=== PATIENT | female | born 1995 | race Two or more races ===

== ENCOUNTER 2016-08-26 17:37 | Emergency (ER) | payer OTHER ==
[~2016-08-26] VITALS: Ht 149.9 cm; Wt 63.5 kg
[~2016-08-26 17:37] MED LIST: CEPHALEXIN500 MG ORAL; CYCLOBENZAPRINE10 MG ORAL; IBUPROFEN600 MG ORAL; NKM; NORCO 5-325 TA1 EACH ORAL; OMEPRAZOLE40 M1 ORAL; PEPCID40 MG PO; RANITIDINE HCL150 MG ORAL; ZOFRAN ODT4 MG ORAL; ZOFRAN ODT8 MG ORAL; bcp
[2016-08-26 18:41] LABS: APPEARANCE,URINE CLEAR; KETONES,URINE NEGATIVE (NEGATIVE); LEUKOCYTE ESTERASE ,URINE 1+ (NEGATIVE); NITRITE,URINE NEGATIVE (NEGATIVE); PH,URINE 6.5 (4.5-8.0); PROTEIN,URINE NEGATIVE (NEGATIVE); UROBILINOGEN,URINE NORMAL MG/DL (0.0-1.0)
[2016-08-26 19:12] LABS: BACTERIA,URINE FEW /HPF; SQUAMOUS EPITHELIAL CELL,UR FEW /LPF (NONE/OCC); WBC,URINE 0-2 /HPF (0 - 2)
--- NOTE | 2016-08-26 21:48 | Emergency Room Report ---
History of Present Illness General Chief Complaint: Complications Source: Patient Present Illness HPI 21-year-old female presents to emergency Department complaining of midline lower abdominal discomfort rated as 5/10 in severity described as fullness/ loading/stretched out sensation x1 day. Patient states onset was immediately after having to hold her full bladder x20 minutes. Patient reports frequency and mild dysuria. Patient denies abdominal tenderness patient states her lower abdomen feels "sore". Patient denies hematuria and denies vaginal bleeding or vaginal discharge. Patient is and states she is approximately 5 weeks . Patient states her ultrasound is scheduled for next month. Patient denies nausea, vomiting fevers or chills. Patient denies constipation or diarrhea. 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 Denies CP, Palpitations, LOC, AMS, dizziness, Changes in Vision, Sensation, paresthesias, or a sudden severe headache. Allergies: Coded Allergies: PENICILLINS (Verified Allergy, Mild, rash, 12/25/12) Patient History Past Medical History: see triage record Past Surgical History: none Pertinent Family History: none Last Menstrual Period: 07/26/16 Now: Yes - possibly 5 weeks, not positive on date of LMP : 2 Para: 1 Immunizations: UTD Reviewed Nursing Documentation: PMH: Agreed, PSxH: Agreed Nursing Documentation-PMH Past Medical History: No Stated History Hx Cardiac Problems: No Hx Cancer: No Hx Gastrointestinal Problems: Yes - GALLSTONES ONE YEAR Hx Neurological Problems: No Review of Systems All Other Systems: negative except mentioned in HPI Physical Exam Vital Signs Date Time Temp Pulse Resp B/P Pulse Ox O2 Delivery O2 Flow Rate FiO2 08/26/16 17:50 98.6 84 16 99/64 99 Room Air Sp02 EP Interpretation: reviewed, normal General Appearance: no apparent distress, alert, GCS 15, non-toxic Head: normocephalic, atraumatic Eyes: bilateral eye PERRL, bilateral eye normal inspection ENT: hearing grossly normal, normal pharynx, no angioedema, normal voice Neck: full range of motion, supple/symm/no masses Respiratory: chest non-tender, lungs clear, normal breath sounds, speaking full sentences Cardiovascular #1: regular rate, rhythm, no edema Gastrointestinal: normal bowel sounds, non tender, soft, no guarding, no rebound, other - Negative [place] signs, Negative MacBurney's sign, Negative Rosvigns Sign, Negative Psoas, No Peritoneal signs. Rectal: deferred Genitourinary: normal inspection, no CVA tenderness, adnexa normal, cervix normal, ext genitalia/vag normal, os closed Musculoskeletal: back normal, gait/station normal, normal range of motion, non- tender, no calf tenderness Neurologic: alert, oriented x3, responsive, motor strength/tone normal, sensory intact, speech normal Psychiatric: judgement/insight normal, memory normal, mood/affect normal, no suicidal/homicidal ideation Reflexes: 4+ bicep (R), 4+ bicep (L), 4+ tricep (R), 4+ tricep (L), 4+ knee (R) , 4+ knee (L) Skin: normal color, no rash, warm/dry, well hydrated Lymphatic: no adenopathy Medical Decision Making PA Attestation Dr. Hassan is my supervising Physician whom patient management has been discussed with. Diagnostic Impression: Primary Impression: Ovarian cyst during in first trimester Additional Impression: Dysuria in in first trimester ER Course 21-year-old female presents to emergency Department complaining of midline lower abdominal discomfort rated as 5/10 in severity described as fullness/ loading/stretched out sensation x1 day. Patient states onset was immediately after having to hold her full bladder x20 minutes. Patient reports frequency and mild dysuria. Patient denies abdominal tenderness patient states her lower abdomen feels "sore". Patient denies hematuria and denies vaginal bleeding or vaginal discharge. Patient is and states she is approximately 5 weeks . Patient states her ultrasound is scheduled for next month.. Ddx considered but are not limited to: muscle strain, ectopic , Spontaneous ,threatened , UTI, cystitis Vital signs: are WNL, pt. is afebrile Pelvic Exam: no evidence of blood in the vaginal vault, os is closed, no CMT. no adnexal TTP. H&PE are most consistent with: acute cystitis/ possible UTI during , will r/o ectopic. ORDERS: -Urine hcg- Positive -UA: moderate RBC's , no WBC, no leukocytes, few bacteria, few squamous cells. -serum Hcg Quant: 48,347 -Pelvic US complete- normal intrauterine estimated at 6weeks and 4days gestation.with bilateral corpus luteum cysts. per preliminary radiology report by Dr. Almazan. ED INTERVENTIONS: -200mg Pyridium PO . DISCHARGE: At this time pt. is stable for d/c to home. Will provide printed patient care instructions, and any necessary prescriptions. Care plan and follow up instructions have been discussed with the patient prior to discharge. Labs Test 08/26/16 17:55 08/26/16 19:44 Urine Color Yellow Urine Appearance Clear Urine pH 6.5 (4.5-8.0) Urine Specific Mark 1.010 (1.005-1.035) Urine Protein Negative (NEGATIVE) Urine Glucose (UA) Negative (NEGATIVE) Urine Ketones Negative (NEGATIVE) Urine Occult Blood 1+ (NEGATIVE) Urine Nitrite Negative (NEGATIVE) Urine Bilirubin Negative (NEGATIVE) Urine Urobilinogen Normal MG/DL (0.0-1.0) Urine Leukocyte Esterase 1+ (NEGATIVE) Urine RBC 2-4 /HPF (0 - 2) Urine WBC 0-2 /HPF (0 - 2) Urine Squamous Epithelial Cells Few /LPF (NONE/OCC) Urine Bacteria Few /HPF (NONE) Urine HCG, Qualitative Positive Human Chorionic Gonadotropin, Quant 23908 mIU/mL Last Vital Signs Date Time Temp Pulse Resp B/P Pulse Ox O2 Delivery O2 Flow Rate FiO2 08/26/16 17:50 98.6 84 16 99/64 99 Room Air Disposition: HOME, SELF-CARE Condition: Stable Referrals: [facility],REFERRIN (PCP) Patient Instructions: Dysuria, Ovarian Cyst, [id number] Additional Instructions: Take medications as directed. Follow up with OBGYN in 3 days Return sooner to ED if new symptoms occur, or current symptoms become worse. Pyridium will cause your urine to change color (Red/Chugach), this is a normal side effect of the medication. - Please note that this Emergency Department Report was dictated using [employer]mold filler plastic dolls technology software, occasionally this can lead to erroneous entry secondary to interpretation by the dictation equipment. Nati Garcia Aug 26, 2016 21:48
[2016-08-26] MEDS ORDERED: PHENAZOPYRIDIN100 MG ORAL (22:27)
[2016-08-26] MEDS ORDERED: TYLENOL EXTRA500 MG ORAL (22:27)
[2016-08-26] MEDS ORDERED: Phenazopyridine 200mg tab ORAL ONE (22:30)
[2016-08-26 22:44] VITALS: BP 122/90
--- NOTE | 2016-08-27 11:15 | Diagnostic Imaging Report ---
Indication: PAIN, positive test Technique: Transabdominal and transvaginal images Comparison: 01/23/2013 Findings: Uterus measures 8.9 cm length by 5 cm AP. Within the endometrium, there is a gestational sac. Contains a pole with a crown-rump length of 7 mm, corresponding to estimated gestational age of 6 weeks 4 days. This also demonstrates a yolk sac with positive heart activity, with a heart rate of 144 beats per minute. No subchorionic hemorrhage demonstrated. Myometrium is diffusely heterogeneous. Nabothian cysts are seen in the cervix. The endometrium is questionably bicornuate. The right ovary measures 3.3 cm in length. It demonstrates a 2.1 cm corpus luteum. The left ovary measures 3.1 cm in length, demonstrates a 2.1 cm corpus luteum. Impression: 6 week 4 day single intrauterine . No unusual features Suspect fibroid uterus Possible bicornuate uterus Cervical nabothian cysts incidentally noted This agrees with the preliminary interpretation provided overnight by Dr. Almazan
== END 2016-08-26 22:47 | disposition home or self-care (01) ==
LOC: EMR 19:58
DX: O34.81 Maternal care for other abnormalities of pelvic organs, first trimester (principal); Z3A.01 Less than 8 weeks gestation of pregnancy; R30.0 Dysuria; Z88.0 Allergy status to penicillin
CPT/HCPCS: 36415; 76801; 76830; 81003; 81025; 84702; 99284

== ENCOUNTER 2018-11-30 23:20 | Emergency (ER) | payer OTHER ==
[~2018-11-30] VITALS: Ht 162.6 cm; Wt 68.0 kg
[~2018-11-30 23:20] MED LIST changes: +PHENAZOPYRIDIN100 MG ORAL; +TYLENOL EXTRA500 MG ORAL
[2018-11-30 23:23] VITALS: BP 125/86
--- NOTE | 2018-11-30 23:23 | NUR ---
ED Nurse Note: Pt arrived ambulatory into ED for abcess located on left side of perineal area. Pt states abcess began 2 months ago but has progressively gotten worst. Pain occurs during ADL's and during exertion.
[2018-11-30] MEDS ORDERED: NKM (23:25)
--- NOTE | 2018-11-30 23:41 | Emergency Room Report ---
History of Present Illness General Chief Complaint: Skin Rash/Abscess Source: Patient Present Illness HPI Patient sense with complaints of a small visible bump left vaginal area Patient has noticed over the past 2 months however reports over the past week has been more irritated Denies any discharge Denies any fevers or chills Denies any abdominal pain Pain is worse with walking and touching the area Allergies: Coded Allergies: PENICILLINS (Verified Allergy, Mild, rash, 12/25/12) Patient History Past Medical History: see triage record Pertinent Family History: none Last Menstrual Period: implant on 2017 Now: No : 2 Para: 2 Reviewed Nursing Documentation: PMH: Agreed; PSxH: Agreed Nursing Documentation-PMH Past Medical History: No History, Except For Hx Cardiac Problems: No Hx Cancer: No Hx Gastrointestinal Problems: Yes - GALLSTONES ONE YEAR Hx Neurological Problems: No Review of Systems All Other Systems: negative except mentioned in HPI Physical Exam Vital Signs Date Time Temp Pulse Resp B/P (MAP) Pulse Ox O2 Delivery O2 Flow Rate FiO2 11/30/18 23:22 99.5 90 18 125/86 (99) 100 Room Air Sp02 EP Interpretation: reviewed, normal General Appearance: well appearing, no apparent distress Head: normocephalic, atraumatic Eyes: bilateral eye PERRL, bilateral eye EOMI ENT: hearing grossly normal, normal pharynx Neck: supple Respiratory: lungs clear Gastrointestinal: soft Genitourinary: other - Small raised appearance left lobe or a major area, consistent with likely folliculitis, early Bartholin's cyst cannot be ruled out Musculoskeletal: normal inspection Neurologic: alert, oriented x3 Skin: no rash, warm/dry Lymphatic: no adenopathy Medical Decision Making Diagnostic Impression: Primary Impression: Folliculitis Additional Impression: Bartholin cyst ER Course Multiple differentials and consideration including but not limited to folliculitis, ingrown hair, Bartholin cyst, the area in question appears to be more external, making the consideration for Bartholin cyst bit less likely Patient is placed on antibiotics warm soaking at this time incision is not appropriate and patient was deferred to gynecology follow-up for further care as needed Last Vital Signs Date Time Temp Pulse Resp B/P (MAP) Pulse Ox O2 Delivery O2 Flow Rate FiO2 11/30/18 23:22 99.5 90 18 125/86 (99) 100 Room Air Status: unchanged Disposition: HOME, SELF-CARE Condition: Stable Additional Instructions: Patient is provided with the discharge instructions notified to follow up with primary doctor in the next 2-3 days otherwise return to the er with any worsening symptoms. Please note that this report is being documented using [employer] technology. This can lead to erroneous entry secondary to incorrect interpretation by the dictating instrument. Edouard Hassan DO November 30, 2018 23:41
[2018-11-30] MEDS ORDERED: BACTRIM DS TAB1 EAC1 ORAL (23:43)
[2018-11-30] MEDS ORDERED: IBUPROFEN600 MG ORAL (23:43)
--- NOTE | 2018-11-30 23:45 | NUR ---
ED Nurse Note: Pt cleared by . Pt A/Ox4, showing no signs of acute distress. VSS. Discharge paperwork provided. Pt verbalized understanding of all instructions. All belongings taken with pt. ID band removed. Pt ambulated out of ED with steady gait and accompanied by family member.
[2018-11-30 23:46] VITALS: BP 130/66
== END 2018-11-30 23:45 | disposition home or self-care (01) ==
LOC: EMR 23:34
DX: L73.9 Follicular disorder, unspecified (principal); N75.0 Cyst of Bartholin's gland; Z88.0 Allergy status to penicillin
CPT/HCPCS: 99282

== ENCOUNTER 2018-12-11 21:49 | Emergency (ER) | payer OTHER ==
[~2018-12-11] VITALS: Ht 149.9 cm; Wt 71.2 kg
[~2018-12-11 21:49] MED LIST changes: +BACTRIM DS TAB1 EAC1 ORAL
[2018-12-11] MEDS ORDERED: BACITRACIN15 GM TOPIC (23:07)
[2018-12-11 23:15] VITALS: BP 107/66
[2018-12-11 23:25] VITALS: BP 111/72
--- NOTE | 2018-12-12 05:59 | Emergency Room Report ---
History of Present Illness General Chief Complaint: Female Urogenital Problems Source: Patient Present Illness HPI 23-year-old female presents ED for evaluation. Patient complaining of an painful bump on her vagina. States she was seen here on 11/30 for the same thing. Was prescribed antibiotics. States that it improved overall but she still having some irritation. It is burning, 3 out of 10, nonradiating. Denies any bleeding or discharge. Denies any fevers or chills. No other aggravating relieving factors. Denies any other associated symptoms Allergies: Coded Allergies: PENICILLINS (Verified Allergy, Mild, rash, 12/25/12) Patient History Past Medical History: none Past Surgical History: none Pertinent Family History: none Social History: Denies: smoking, alcohol use, drug use Last Menstrual Period: Inplant control Now: No Immunizations: UTD Reviewed Nursing Documentation: PMH: Agreed; PSxH: Agreed Nursing Documentation-PMH Hx Cardiac Problems: No Hx Cancer: No Hx Gastrointestinal Problems: Yes - GALLSTONES ONE YEAR Hx Neurological Problems: No Review of Systems All Other Systems: negative except mentioned in HPI Physical Exam Vital Signs Date Time Temp Pulse Resp B/P (MAP) Pulse Ox O2 Delivery O2 Flow Rate FiO2 12/11/18 22:02 99.0 80 18 111/72 (85) 98 Room Air Sp02 EP Interpretation: reviewed, normal General Appearance: no apparent distress, alert, GCS 15, non-toxic Head: normocephalic Eyes: bilateral eye normal inspection, bilateral eye PERRL ENT: normal ENT inspection Neck: normal inspection Respiratory: normal inspection Cardiovascular #1: normal inspection Gastrointestinal: normal inspection Rectal: deferred Genitourinary: no CVA tenderness, other - program attendant present - healing folliculitis outer labia on right Musculoskeletal: normal inspection Neurologic: alert, oriented x3, responsive, motor strength/tone normal, sensory intact, speech normal Psychiatric: normal inspection Skin: normal inspection Lymphatic: normal inspection Medical Decision Making Diagnostic Impression: Primary Impression: Folliculitis ER Course Hospital Course 23-year-old F presents to ED for wound check. given abx for infection on vagina Clinical course Patient placed on stretcher. Prone present. On exam there is a healing folliculitis on the outer labia on the right. No induration. No fluctuance or discharge. Discussed findings with patient. Does not appear actively infected. I see no reason to continue antibiotics. Patient does describe some irritation with clothing. Recommended padding and bacitracin. Safe for discharge for close outpatient follow-up. Will provide referrals Diagnosis - follicultiis Stable and discharged to home. Followup with PMD. Return to ED if things recur or worsen Last Vital Signs Date Time Temp Pulse Resp B/P (MAP) Pulse Ox O2 Delivery O2 Flow Rate FiO2 12/11/18 23:25 99.0 18 111/72 98 Room Air 12/11/18 23:15 76 Status: improved Disposition: HOME, SELF-CARE Condition: Stable Scripts Bacitracin (Bacitracin) 28.4 Gm Oint...g. 1 APPLIC TOPIC THREE TIMES A DAY, #28.4 GM Prov: Reed Barragan MD 12/11/18 Referrals: [facility] Patient Instructions: Folliculitis Reed Barragan MD Dec 12, 2018 05:59
== END 2018-12-11 23:25 | disposition home or self-care (01) ==
LOC: EMR 22:31
DX: L73.9 Follicular disorder, unspecified (principal); Z88.0 Allergy status to penicillin
CPT/HCPCS: 99282

== ENCOUNTER 2019-01-03 11:19 | Emergency (ER) | payer OTHER ==
[~2019-01-03] VITALS: Ht 149.9 cm; Wt 70.8 kg
[~2019-01-03 11:19] MED LIST changes: +BACITRACIN15 GM TOPIC
[2019-01-03 11:36] VITALS: BP 124/80
--- NOTE | 2019-01-03 11:37 | NUR ---
ED Nurse Note: pt walked in to ED due to generalized body pain. started on both knee and now all over the body. no fever or chills reported. no recent injury. AAO x4. ambulatory with steady gait. respiraions even and non-labored noted. will wait for the further order.
[2019-01-03 12:13] LABS: APPEARANCE,URINE CLEAR; BILIRUBIN, URINE NEGATIVE (NEGATIVE); COLOR,URINE PALE YELLOW; GLUCOSE, URINE (UA) NEGATIVE (NEGATIVE); KETONES,URINE NEGATIVE (NEGATIVE); LEUKOCYTE ESTERASE ,URINE 3+ (NEGATIVE); NITRITE,URINE NEGATIVE (NEGATIVE); PH,URINE 7 (4.5-8.0); PROTEIN,URINE 1+ (NEGATIVE); UROBILINOGEN,URINE NORMAL MG/DL (0.0-1.0)
[2019-01-03 12:14] LABS: BASOPHILS % (AUTO) 1.2 % (0.0-2.0); EOSINOPHILS % (AUTO) 1.5 % (0.0-3.0); HEMATOCRIT 40.8 % (37.0-47.0); HEMOGLOBIN 13.9 G/DL (12.0-16.0); LYMPHOCYTES % (AUTO) 27.4 % (20.0-45.0); MEAN CORPUSCULAR VOLUME 87 FL (80-99); MONOCYTES % (AUTO) 7.1 % (1.0-10.0); NEUTROPHILS % (AUTO) 62.9 % (45.0-75.0); PLATELET COUNT 317 K/UL (150-450); RED BLOOD COUNT 4.68 M/UL (4.20-5.40); RED CELL DISTRIBUTION WIDTH 11.7 % (11.6-14.8); WHITE BLOOD COUNT 7.7 K/UL (4.8-10.8)
--- NOTE | 2019-01-03 12:16 | Emergency Room Report ---
History of Present Illness General Chief Complaint: Pain Source: Patient Present Illness HPI Patient presents with complaints of body aches reports that several days ago started out with some leg cramping She had taken some Advil which improved the discomfort Throughout the day yesterday and today she felt increased body aches including the upper extremities and upper chest area she has been having mild headaches over the past few days as well Denies any neck pain or photophobia denies any vomiting or diarrhea Denies any fevers Denies any fall or trauma denies any other recent activities Allergies: Coded Allergies: PENICILLINS (Verified Allergy, Mild, rash, 01/03/19) Patient History Past Medical History: see triage record Pertinent Family History: none Last Menstrual Period: 2018 Now: No : 2 Para: 2 Reviewed Nursing Documentation: PMH: Agreed; PSxH: Agreed Nursing Documentation-PMH Past Medical History: No History, Except For Hx Cardiac Problems: No Hx Cancer: No Hx Gastrointestinal Problems: Yes - GALLSTONES ONE YEAR Hx Neurological Problems: No Review of Systems All Other Systems: negative except mentioned in HPI Physical Exam Vital Signs Date Time Temp Pulse Resp B/P (MAP) Pulse Ox O2 Delivery O2 Flow Rate FiO2 01/03/19 11:23 98.4 108 18 124/80 (95) 97 Room Air Sp02 EP Interpretation: reviewed, normal General Appearance: well appearing, no apparent distress Head: normocephalic, atraumatic Eyes: bilateral eye PERRL, bilateral eye EOMI ENT: hearing grossly normal, normal pharynx, TMs + canals normal, uvula midline Neck: full range of motion, supple, no meningismus, no bony tend Respiratory: lungs clear, normal breath sounds, no rhonchi, no respiratory distress, no retraction, no accessory muscle use Cardiovascular #1: normal peripheral pulses, regular rate, rhythm, no edema, no gallop, no JVD, no murmur Gastrointestinal: normal bowel sounds, non tender, soft, no mass, no organomegaly, non-distended, no guarding, no hernia, no pulsatile mass, no rebound Genitourinary: no CVA tenderness Musculoskeletal: normal inspection Neurologic: oriented x3, responsive, drier unloader III-XII nml as tested, motor strength/ tone normal, sensory intact Psychiatric: mood/affect normal Lymphatic: normal inspection, no adenopathy Medical Decision Making Diagnostic Impression: Primary Impression: UTI (urinary tract infection) Additional Impressions: Myalgia Dehydration ER Course Given the patient's history and presentation multiple differentials and consideration Including but not limited to flulike symptoms, rhabdomyolysis, other electro light pathology Patient's blood work is at baseline levels however a urine sample does show questionable UTI patient remains hemodynamically stable And will have initial conservative outpatient trial Labs Test 01/03/19 12:03 White Blood Count 7.7 K/UL (4.8-10.8) Red Blood Count 4.68 M/UL (4.20-5.40) Hemoglobin 13.9 G/DL (12.0-16.0) Hematocrit 40.8 % (37.0-47.0) Mean Corpuscular Volume 87 FL (80-99) Mean Corpuscular Hemoglobin 29.7 PG (27.0-31.0) Mean Corpuscular Hemoglobin Concent 34.0 G/DL (32.0-36.0) Red Cell Distribution Width 11.7 % (11.6-14.8) Platelet Count 317 K/UL (150-450) Mean Platelet Volume 8.4 FL (6.5-10.1) Neutrophils (%) (Auto) 62.9 % (45.0-75.0) Lymphocytes (%) (Auto) 27.4 % (20.0-45.0) Monocytes (%) (Auto) 7.1 % (1.0-10.0) Eosinophils (%) (Auto) 1.5 % (0.0-3.0) Basophils (%) (Auto) 1.2 % (0.0-2.0) Urine Color Pale yellow Urine Appearance Clear Urine pH 7 (4.5-8.0) Urine Specific [place] 1.010 (1.005-1.035) Urine Protein 1+ (NEGATIVE) Urine Glucose (UA) Negative (NEGATIVE) Urine Ketones Negative (NEGATIVE) Urine Blood 2+ (NEGATIVE) Urine Nitrite Negative (NEGATIVE) Urine Bilirubin Negative (NEGATIVE) Urine Urobilinogen Normal MG/DL (0.0-1.0) Urine Leukocyte Esterase 3+ (NEGATIVE) Urine RBC 2-4 /HPF (0 - 2) Urine WBC 5-10 /HPF (0 - 2) Urine Squamous Epithelial Cells Moderate /LPF (NONE/OCC) Urine Bacteria Few /HPF (NONE) Urine HCG, Qualitative Negative (NEGATIVE) Sodium Level 141 MMOL/L (136-145) Potassium Level 3.9 MMOL/L (3.5-5.1) Chloride Level 104 MMOL/L (98-107) Carbon Dioxide Level 27 MMOL/L (21-32) Anion Gap 10 mmol/L (5-15) Blood Urea Nitrogen 6 mg/dL (7-18) Creatinine 0.6 MG/DL (0.55-1.30) Estimat Glomerular Filtration Rate > 60 mL/min (>60) Glucose Level 127 MG/DL (74-106) Calcium Level 9.0 MG/DL (8.5-10.1) Total Bilirubin 0.3 MG/DL (0.2-1.0) Aspartate Amino Transf (AST/SGOT) 26 U/L (15-37) Alanine Aminotransferase (ALT/SGPT) 45 U/L (12-78) Alkaline Phosphatase 90 U/L (46-116) Total Creatine Kinase 367 U/L (26-308) Total Protein 7.5 G/DL (6.4-8.2) Albumin 3.9 G/DL (3.4-5.0) Globulin 3.6 g/dL Albumin/Globulin Ratio 1.1 (1.0-2.7) Urine Opiates Screen Negative (NEGATIVE) Urine Barbiturates Screen Negative (NEGATIVE) Phencyclidine (PCP) Screen Negative (NEGATIVE) Urine Amphetamines Screen Negative (NEGATIVE) Urine Benzodiazepines Screen Negative (NEGATIVE) Urine Cocaine Screen Negative (NEGATIVE) Urine Marijuana (THC) Screen Negative (NEGATIVE) Last Vital Signs Date Time Temp Pulse Resp B/P (MAP) Pulse Ox O2 Delivery O2 Flow Rate FiO2 01/03/19 11:36 98.4 108 18 124/80 97 Room Air Status: improved Disposition: HOME, SELF-CARE Condition: Improved Scripts Nitrofurantoin Monohyd/M-Cryst* (MACROBID 100 MG*) 100 Mg Capsule 100 MG ORAL EVERY 12 HOURS for 7 Days, #14 CAP Prov: Edouard Hassan DO 01/03/19 Additional Instructions: Patient is provided with the discharge instructions notified to follow up with primary doctor in the next 2-3 days otherwise return to the er with any worsening symptoms. Please note that this report is being documented using [employer] technology. This can lead to erroneous entry secondary to incorrect interpretation by the dictating instrument. Edouard Hassan DO Jan 03, 2019 12:16
[2019-01-03 12:36] LABS: ALANINE AMINOTRANSFERASE 45 U/L (12-78); ALBUMIN 3.9 G/DL (3.4-5.0); ALBUMIN/GLOBULIN RATIO 1.1 (1.0-2.7); ALKALINE PHOSPHATASE 90 U/L (46-116); ANION GAP 10 mmol/L (5-15); ASPARTATE AMINO TRANSFERASE 26 U/L (15-37); BILIRUBIN,TOTAL 0.3 MG/DL (0.2-1.0); BLOOD UREA NITROGEN 6 mg/dL (7-18); CARBON DIOXIDE 27 MMOL/L (21-32); CHLORIDE 104 MMOL/L (98-107); CREATINE KINASE 367 U/L (26-308); CREATININE 0.6 MG/DL (0.55-1.30); POTASSIUM 3.9 MMOL/L (3.5-5.1); SODIUM 141 MMOL/L (136-145)
[2019-01-03] MEDS ORDERED: NITROFURANTOIN100 M2 ORAL (12:40)
[2019-01-03 12:50] VITALS: BP 124/80
--- NOTE | 2019-01-03 12:50 | NUR ---
ER DISCHARGE NOTE: Patient is cleared to be discharged per ERMD, pt is aox4, on room air, with stable vital signs. pt was given dc and prescription instructions, pt was able to verbalize understanding, pt id band removed. pt is able to ambulate with steady gait. pt took all belongings.ED Nurse Note:
== END 2019-01-03 12:51 | disposition home or self-care (01) ==
LOC: EMR 12:10
DX: M79.10 Myalgia, unspecified site (principal); E86.0 Dehydration; N39.0 Urinary tract infection, site not specified; Z88.0 Allergy status to penicillin
CPT/HCPCS: 36415; 80053; 80307; 81003; 81025; 82550; 85025; 99283

== ENCOUNTER 2019-10-18 16:45 | Emergency (ER) | payer MEDICAID, OTHER ==
[~2019-10-18] VITALS: Ht 144.8 cm; Wt 67.1 kg
[~2019-10-18 16:45] MED LIST changes: +NITROFURANTOIN100 M2 ORAL
[2019-10-18 16:57] VITALS: BP 122/78
--- NOTE | 2019-10-18 17:02 | NUR ---
ED Nurse Note: A/OX4. REPORTS HAVING SEVERE RIGHT SIDED TOOTHACHE SINCE A MONTH AGO. WAS SEEN BY DENTIST 3WEEKS AGO AND TOLD TO COME BACK THE FOLLOWING WEEK. BUT WAS TOLD LATER THAT THEY ARE NO LONGER SEEING PTS DUE TO CORONAVIRUS PANDEMIC SITUATION. CAME TO ED TODAY DUE TO WORSEN SYMPTOMS.
--- NOTE | 2019-10-18 17:04 | Emergency Room Report ---
History of Present Illness General Chief Complaint: Toothache Source: Patient Present Illness HPI 24-year-old female with no significant past medical history here complaining of right-sided toothache radiating to right cheek and ear x1 month. Reports that patient was seen by a dentist about a month ago, was put on amoxicillin 3 times a day and given ibuprofen. However was told that due to recent pandemic cannot have any dental work done. Patient reports that 2 days ago she started having more pain in the side. Denies any numbness the affected side. Swelling is noted. Denies fever and chills, headache and dizziness at this time. Rates pain 10 out of 10. Is able to open and close mouth. No pus drainage noted. Denies chest pain, shortness of breath, cough or congestion, no other URI symptoms. Denies at this time. Allergies: Coded Allergies: PENICILLINS (Verified Allergy, Mild, rash, 01/03/19) COVID-19 Screening Contact w/high risk pt: No Recent Travel to affected area: No Experienced COVID-19 symptoms?: No Patient History Past Medical History: see triage record Past Surgical History: none Pertinent Family History: none Now: No Immunizations: UTD Reviewed Nursing Documentation: PMH: Agreed; PSxH: Agreed Nursing Documentation-PMH Past Medical History: No History, Except For Hx Cardiac Problems: No Hx Cancer: No Hx Gastrointestinal Problems: Yes - GALLSTONES, gallbladder removal Hx Neurological Problems: No Review of Systems All Other Systems: negative except mentioned in HPI Physical Exam Vital Signs Date Time Temp Pulse Resp B/P (MAP) Pulse Ox O2 Delivery O2 Flow Rate FiO2 10/18/19 16:49 98.1 67 24 122/78 (93) 97 Room Air Sp02 EP Interpretation: reviewed, normal General Appearance: no apparent distress, alert, GCS 15, non-toxic Head: normocephalic, atraumatic Eyes: bilateral eye normal inspection, bilateral eye PERRL ENT: hearing grossly normal, normal pharynx, no angioedema, normal voice, other - Swelling noted right maxilla Neck: full range of motion, supple/symm/no masses Respiratory: chest non-tender, lungs clear, normal breath sounds, speaking full sentences Cardiovascular #1: regular rate, rhythm, no edema, no murmur Gastrointestinal: non tender, soft Genitourinary: no CVA tenderness Musculoskeletal: back normal Neurologic: alert, motor strength/tone normal, oriented x3, sensory intact, responsive, speech normal Psychiatric: normal inspection, judgement/insight normal Skin: no rash Lymphatic: no adenopathy Medical Decision Making PA Attestation All my diagnosis and treatment plans were reviewed ad discussed with my supervising physician Dr. Barragan Diagnostic Impression: Primary Impression: Tooth infection ER Course 24-year-old female with no significant past medical history here complaining of right-sided toothache radiating to right cheek and ear x1 month. Reports that patient was seen by a dentist about a month ago, was put on amoxicillin 3 times a day and given ibuprofen. However was told that due to recent pandemic cannot have any dental work done. Patient reports that 2 days ago she started having more pain in the side. Denies any numbness the affected side. Swelling is noted. Denies fever and chills, headache and dizziness at this time. Rates pain 10 out of 10. Is able to open and close mouth. No pus drainage noted. Denies chest pain, shortness of breath, cough or congestion, no other URI symptoms. Denies at this time. Ddx considered but are not limited to : Cellulitis, dental abscess, dental infection, dental caries Vital signs: are WNL, pt. is afebrile H&PE are most consistent with: Dental infection, edema uppercase ORDERS: Clindamycin, Tylenol 3, ibuprofen ED INTERVENTIONS: Tylenol 3 po, clindamycin DISCHARGE: At this time pt. is stable for d/c to home. Will provide printed patient care instructions, and any necessary prescriptions. Care plan and follow up instructions have been discussed with the patient prior to discharge. The patient can go to, at this time patient is to follow-up with her dentist, take medication as directed, if worsening symptoms, fever and chills return to the emergency room Last Vital Signs Date Time Temp Pulse Resp B/P (MAP) Pulse Ox O2 Delivery O2 Flow Rate FiO2 10/18/19 16:57 98.1 68 24 122/78 97 Room Air Disposition: HOME, SELF-CARE Condition: Stable Scripts Lidocaine HCl (Lidocaine HCl Viscous) 100 Ml Solution 15 ML MM TID, #120 ML Prov: Geraldo Vaca 10/18/19 Clindamycin Hcl* (CLINDAMYCIN HCL*) 150 Mg Capsule 300 MG ORAL FOUR TIMES A DAY for 7 Days, #28 CAP Prov: Geraldo Vaca 10/18/19 Acetaminophen With Codeine (T#3) (TYLENOL #3 TAB*) Y Tab 1 TAB ORAL Q8HR PRN for For Pain for 3 Days, #10 TAB Prov: Geraldo Vaca 10/18/19 Ibuprofen (Ibu) 800 Mg Tablet 800 MG PO TID, #30 TAB Prov: Geraldo Vaca 10/18/19 Patient Instructions: Dental Pain Additional Instructions: Take medication as directed, follow-up with your dentist avoid eating with affected area, if worsening symptoms return to the emergency room Geraldo Vaca Oct 18, 2019 17:04
[2019-10-18] MEDS ORDERED: CLINDAMYCIN HC150 MG ORAL (17:06)
[2019-10-18] MEDS ORDERED: ACETAMINOPHEN-1 EAC1 ORAL (17:06)
[2019-10-18] MEDS ORDERED: IBU800 MG PO (17:06)
[2019-10-18] MEDS ORDERED: MAGIC MOUTH WAS60 ML MM (17:09)
[2019-10-18] MEDS ORDERED: Tylenol #3 tab (300mg/30mg) ORAL ONE (17:15)
[2019-10-18] MEDS ORDERED: Clindamycin 150mg cap ORAL SCH (17:15)
[2019-10-18 17:17] VITALS: BP 122/78
--- NOTE | 2019-10-18 17:17 | NUR ---
ED Nurse Note: Pt cleared by health care Provider for discharge. DC instructions/prescription was given and explained to pt and verbalized understanding of teachings. All medical deviecs such as ID band removed. Pt is AAO x4, ambulatory and left with all personal belongings.
== END 2019-10-18 17:50 | disposition home or self-care (01) ==
LOC: EMR 17:00
DX: K04.7 Periapical abscess without sinus (principal); Z88.0 Allergy status to penicillin; Z90.49 Acquired absence of other specified parts of digestive tract
CPT/HCPCS: 99282